=== PATIENT | male | born 1990 | race African-American/Black ===

== ENCOUNTER 2017-06-27 21:12 | Emergency (ER) | payer OTHER ==
[2017-06-27] MEDS ORDERED: Ibuprofen TAB* 600 MG PO ONE ×2 (21:32→22:33)
--- NOTE | 2017-06-27 22:20 | ED ---
HPI Febrile Illness - HPI Summary HPI Summary: 27M presents with fever for a day. He admits to fatigue, muscle aches, headache , sinus congestion and sore throat. He denies any neck stiffness. He has not taken anything for it. He denies any SOB or chest pain. He admits to slight cough. He denies any abdominal pain, n/v/d. He denies any history of strept. headache is located in temporal region. He denies any sinus tenderness. - History of Current Complaint Chief Complaint: EDFluSymptoms Time Seen by Provider: 06/27/17 21:22 Timing: Lasting Hours Pain Intensity: 8 - Allergy/Home Medications Allergies/Adverse Reactions: Allergies Allergy/AdvReac Type Severity Reaction Status Date / Time No Known Allergies Allergy Verified 06/27/17 21:22 PMH/Surg Hx/FS Hx/Imm Hx Endocrine/Hematology History: Denies: Hx Anticoagulant Therapy Cardiovascular History: Denies: Hx Cardiac Arrest Infectious Disease History: No Infectious Disease History: Denies: Traveled Outside the [place] in Last 30 Days - Family History Known Family History: Negative: Diabetes - Social History Alcohol Use: None Substance Use Type: Reports: None Smoking Status (MU): Light Every Day Tobacco Smoker Review of Systems Positive: Fever Positive: Sore Throat, Nasal Discharge Negative: Chest Pain Positive: Cough. Negative: Shortness Of Breath Positive: Headache All Other Systems Reviewed And Are Negative: Yes Physical Exam Triage Information Reviewed: Yes Vital Signs On Initial Exam: Initial Vitals Temp Pulse Resp BP Pulse Ox 100 F 96 22 145/84 97 06/27/17 21:18 06/27/17 21:18 06/27/17 21:18 06/27/17 21:18 06/27/17 21:18 Vital Signs Reviewed: Yes Appearance: Positive: Ill-Appearing Skin: Positive: Warm, Dry Head/Face: Positive: Normal Head/Face Inspection Eyes: Positive: Normal, EOMI, ROMEL, Conjunctiva Clear ENT: Positive: Pharynx normal, Nasal congestion, TMs normal Neck: Positive: Supple, Nontender, No Lymphadenopathy. Negative: Nuchal Rigidity Respiratory/Lung Sounds: Positive: Clear to Auscultation, Breath Sounds Present Cardiovascular: Positive: Normal, RRR Abdomen Description: Positive: Nontender, Soft Bowel Sounds: Positive: Present Neurological: Positive: Normal - Stout Coma Scale Coma Scale Total: 15 Diagnostics - Vital Signs Vital Signs Temp Pulse Resp BP Pulse Ox 06/27/17 21:27 92 98 06/27/17 21:18 100 F 96 22 145/84 97 - Laboratory Lab Results: Lab Results 06/27/17 06/27/17 Range/Units 21:49 21:51 Influenza A (Rapid) Negative (Negative) Influenza B (Rapid) Negative (Negative) Group A Strep Rapid Negative (Negative) Lab Statement: Any lab studies that have been ordered have been reviewed, and results considered in the medical decision making process. Course/Dx - Course Course Of Treatment: 27M presents with fever for a day. He admits to fatigue, muscle aches, headache, sinus congestion and sore throat. He denies any neck stiffness. He has not taken anything for it. He denies any SOB or chest pain. He admits to slight cough. He denies any abdominal pain, n/v/d. He denies any history of strept. lungs CTA. throat normal. strept and flu neg. gave dose of ibuprofen and pt feels better. will d/c with ibuprofen patient understands and agrees with plan. - Febrile Illness Differential Diagnoses: Viremia, Other: - influenza, strept - Diagnoses Provider Diagnoses: Febrile illness Discharge - Discharge Plan Condition: Good Disposition: HOME Prescriptions: Ibuprofen TAB* [Motrin TAB* 600 MG] 600 mg PO Q6H PRN #20 tab PRN Reason: Fever Patient Education Materials: Fever in Adults (ED) Referrals: [facility] [place] [facility]ERR[facility] [Outside] Additional Instructions: Take ibuprofen or tyenlol every 6 hours Drink fluids, rest Establish care with primary care physician to follow up with Return to ED if develop any new or worsening symptoms
[2017-06-27 22:54] VITALS: BP 128/74
== END 2017-06-27 22:53 | disposition home or self-care (01) ==
LOC: ED 21:12
DX: R50.9 Fever, unspecified (principal); R05 Cough; J02.9 Acute pharyngitis, unspecified; R07.9 Chest pain, unspecified
CPT/HCPCS: 87502; 87651; 99282; A9270-GY

== ENCOUNTER 2017-12-01 22:16 | Emergency (ER) | payer OTHER ==
[2017-12-01 22:28] VITALS: BP 131/85
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
== END 2017-12-01 23:04 | disposition home or self-care (01) ==
LOC: ED 22:16
DX: S09.90XA Unspecified injury of head, initial encounter (principal); M25.562 Pain in left knee; W22.01XA Walked into wall, initial encounter; Y92.9 Unspecified place or not applicable; F17.210 Nicotine dependence, cigarettes, uncomplicated
CPT/HCPCS: 99281

== ENCOUNTER 2017-12-02 19:13 | Emergency (ER) | payer OTHER ==
[2017-12-02] MEDS ORDERED: Acetaminophen TAB* 325 MG PO ONE (19:58)
[2017-12-02] MEDS ORDERED: Ibuprofen TAB* 800 MG PO ONE (20:15)
--- NOTE | 2017-12-02 20:39 | ED ---
Influenza-Like Illness - HPI Summary HPI Summary: 27-year-old male presents with fever today. He admits to generalized body aches. He did have a head injury yesterday. He states his headache is better today. He denies any nausea vomiting. Denies any belly pain. He denies any diarrhea. Denies any cough. Denies any sore throat or sinus congestion. He hasn't taken anything for symptoms. No one else is sick. He has no medical conditions. He denies any chest pain or shortness of breath. He denies any neck stiffness. - History of Current Complaint Chief Complaint: EDFever Time Seen by Provider: 12/02/17 19:58 - Allergy/Home Medications Allergies/Adverse Reactions: Allergies Allergy/AdvReac Type Severity Reaction Status Date / Time No Known Allergies Allergy Verified 06/27/17 21:22 PMH/Surg Hx/FS Hx/Imm Hx Endocrine/Hematology History: Denies: Hx Anticoagulant Therapy Cardiovascular History: Denies: Hx Cardiac Arrest Infectious Disease History: No Infectious Disease History: Denies: Traveled Outside the [place] in Last 30 Days - Family History Known Family History: Negative: Diabetes - Social History Alcohol Use: None Substance Use Type: Reports: None Smoking Status (MU): Light Every Day Tobacco Smoker Review of Systems Positive: Fever, Fatigue Negative: Chest Pain Negative: Shortness Of Breath Negative: Abdominal Pain All Other Systems Reviewed And Are Negative: Yes Physical Exam Triage Information Reviewed: Yes Vital Signs On Initial Exam: Initial Vitals Temp Pulse Resp BP Pulse Ox 99.9 F 112 20 143/88 97 12/02/17 19:17 12/02/17 19:17 12/02/17 19:17 12/02/17 19:17 12/02/17 19:17 Vital Signs Reviewed: Yes Appearance: Positive: Well-Appearing Skin: Positive: Warm, Dry Head/Face: Positive: Normal Head/Face Inspection Eyes: Positive: Normal, EOMI, ROMEL, Conjunctiva Clear ENT: Positive: Normal ENT inspection, Pharynx normal, TMs normal Neck: Positive: Supple, Nontender, No Lymphadenopathy. Negative: Nuchal Rigidity Respiratory/Lung Sounds: Positive: Clear to Auscultation, Breath Sounds Present Cardiovascular: Positive: Normal, RRR Abdomen Description: Positive: Nontender, Soft Bowel Sounds: Positive: Present Musculoskeletal: Positive: Normal Neurological: Positive: Normal Psychiatric: Positive: Normal Diagnostics - Vital Signs Vital Signs Temp Pulse Resp BP Pulse Ox 12/02/17 19:17 99.9 F 112 20 143/88 97 - Laboratory Lab Statement: Any lab studies that have been ordered have been reviewed, and results considered in the medical decision making process. Flu Symptom Course/Dx - Course Course Of Treatment: 27-year-old male presents with fever today. He admits to generalized body aches. He did have a head injury yesterday. He states his headache is better today. He denies any nausea vomiting. Denies any belly pain. He denies any diarrhea. Denies any cough. Denies any sore throat or sinus congestion. He hasn't taken anything for symptoms. No one else is sick. He has no medical conditions. He denies any chest pain or shortness of breath. He denies any neck stiffness. On exam lungs clear to auscultation. Pharynx normal. Abdomen soft nontender. flu neg. likely viral syndrome. will have continue tyenlol and ibuprofen. patient understand and agrees with plan. - Diagnoses Differential Diagnosis/HQI/PQRI: Positive: Influenza, Pneumonia, Upper Respiratory Infection Provider Diagnoses: Fever Discharge - Sign-Out/Discharge Documenting (check all that apply): Discharge - Discharge Plan Condition: Good Disposition: AGAINST MEDICAL ADVICE Patient Education Materials: Viral Syndrome (ED) Referrals: [facility] – [place] [facility] REFERRAL [Outside] Additional Instructions: Continue Tylenol or ibuprofen every 6 hours Drink plenty fluids Establish care with primary Return to ED if develop any new or worsening symptoms - Billing Disposition and Condition Condition: GOOD Disposition: LEE
[2017-12-02 21:43] VITALS: BP 120/90
== END 2017-12-02 21:42 | disposition left against medical advice (07) ==
LOC: ED 19:13
DX: R50.9 Fever, unspecified (principal); F17.210 Nicotine dependence, cigarettes, uncomplicated
CPT/HCPCS: 87502; 99282; A9270-GY

== ENCOUNTER 2018-10-19 02:01 | Emergency (ER) | payer MEDICARE, MEDICAID ==
[2018-10-19] MEDS ORDERED: Ibuprofen TAB* 800 MG PO ONE (02:26)
--- NOTE | 2018-10-19 02:35 | ED ---
HPI Febrile Illness - HPI Summary HPI Summary: This patient is a 28 year old male brought in by ambulance to [facility] with a chief complaint of febrile illness since yesterday. Patient states that he has coughs and congestion, followed by chest pain. The pain is rated 5/10 in severity. Symptoms aggravated by nothing. Symptoms alleviated by nothing. Patient additionally reports body aches, chills, fever, cough, sore throat. - History of Current Complaint Chief Complaint: EDFluSymptoms Time Seen by Provider: 10/19/18 02:19 Hx Obtained From: Patient Onset/Duration: Still Present Timing: Constant Temperature: 100 F Current Severity: Moderate Pain Intensity: 5 Pain Scale Used: 0-10 Numeric Aggravating Factors: Nothing Alleviating Factors: Nothing Associated Signs and Symptoms: Other: - body aches, chills, fever, cough, sore throat, chest pain - Allergy/Home Medications Allergies/Adverse Reactions: Allergies Allergy/AdvReac Type Severity Reaction Status Date / Time No Known Allergies Allergy Verified 06/27/17 21:22 PMH/Surg Hx/FS Hx/Imm Hx Previously Healthy: Yes Endocrine/Hematology History: Denies: Hx Anticoagulant Therapy Cardiovascular History: Denies: Hx Cardiac Arrest Opthamlomology History: Denies: Hx Legally Blind EENT History: Denies: Hx Deafness Infectious Disease History: No Infectious Disease History: Denies: Traveled Outside the [place] in Last 30 Days - Family History Known Family History: Negative: Diabetes - Social History Alcohol Use: None Hx Substance Use: No Substance Use Type: Reports: None Hx Tobacco Use: Yes Smoking Status (MU): Light Every Day Tobacco Smoker Review of Systems Positive: Fever, Chills Positive: Sore Throat Positive: Chest Pain Positive: Cough Positive: Myalgia All Other Systems Reviewed And Are Negative: Yes Physical Exam - Summary Physical Exam Summary: VITAL SIGNS: Reviewed. GENERAL: Patient is a well-developed and nourished (MALE OR FEMALE) who is lying comfortable in the stretcher. Patient is not in any acute respiratory distress. HEAD AND FACE: No signs of trauma. No ecchymosis, hematomas or skull depressions. No sinus tenderness. EYES: PERRLA, EOMI x 2, No injected conjunctiva, no nystagmus. EARS: Hearing grossly intact. Ear canals and tympanic membranes are within normal limits. MOUTH: Oropharynx within normal limits. NECK: Supple, trachea is midline, no adenopathy, no JVD, no carotid bruit, no c- spine tenderness, neck with full ROM. CHEST: Symmetric, no tenderness at palpation LUNGS: Clear to auscultation bilaterally. No wheezing or crackles. CVS: Regular rate and rhythm, S1 and S2 present, no murmurs or gallops appreciated. ABDOMEN: Soft, non-tender. No signs of distention. No rebound no guarding, and no masses palpated. Bowel sounds are normal. EXTREMITIES: FROM in all major joints, no edema, no cyanosis or clubbing. NEURO: Alert and oriented x 3. No acute neurological deficits. Speech is normal and follows commands. SKIN: Dry and warm Triage Information Reviewed: Yes Vital Signs On Initial Exam: Initial Vitals Temp Pulse Resp BP Pulse Ox 100.0 F 101 18 150/91 98 10/19/18 02:05 10/19/18 02:05 10/19/18 02:05 10/19/18 02:05 10/19/18 02:05 Vital Signs Reviewed: Yes Diagnostics - Vital Signs Vital Signs Temp Pulse Resp BP Pulse Ox 10/19/18 02:10 99 99 10/19/18 02:05 100.0 F 96 18 150/91 99 - Laboratory Lab Statement: Any lab studies that have been ordered have been reviewed, and results considered in the medical decision making process. Course/Dx - Course Course Of Treatment: This patient is a 28 year old male brought in by ambulance to [facility] with a chief complaint of febrile illness since yesterday. Patient states that he has coughs and congestion, followed by chest pain. In the ED course the patient was given ibuprofen, Tamiflu. The pt is hemodynamically stable, alert and oriented x3. Patients flu swab is positive. Patient will be discharged with a dx of flu. Patient is advised to follow up with PCP in 3 days. The patient is agreeable with this plan. - Diagnoses Provider Diagnoses: Flu Discharge - Sign-Out/Discharge Documenting (check all that apply): Patient Departure Patient Received Moderate/Deep Sedation with Procedure: No - Discharge Plan Condition: Stable Disposition: HOME Prescriptions: Ibuprofen TAB* [Motrin TAB* 800 MG] 800 mg PO Q6H PRN #30 tab PRN Reason: Fever/Pain Oseltamivir CAP* [Tamiflu CAP*] 75 mg PO BID #10 cap Patient Education Materials: Influenza (ED) Forms: *Work Release Referrals: No Primary Care Phys,NOPCP [Primary Care Provider] - 2 Days Additional Instructions: Return to the ED for any new or worsening symptoms. - Attestation Statements Document Initiated by Scribe: Yes Documenting Scribe: Beatris Qiu Provider For Whom Scribe is Documenting (Include Credential): Britt Conrad MD Scribe Attestation: IBeatris, scribed for Britt Conrad MD on 10/19/18 at 0250. Status of Scribe Document: Ready
[2018-10-19 02:47] LABS: Influenza A Molecular POSITIVE (Negative)
[2018-10-19] MEDS ORDERED: Oseltamivir CAP* 75 MG CAP PO ONE (02:48)
[2018-10-19 03:06] VITALS: BP 110/74
== END 2018-10-19 03:05 | disposition home or self-care (01) ==
LOC: ED 02:01
DX: J10.1 Influenza due to other identified influenza virus with other respiratory manifestations (principal); F17.200 Nicotine dependence, unspecified, uncomplicated
CPT/HCPCS: 87651; 99283; A9270-GY

== ENCOUNTER 2018-10-19 13:58 | Emergency (ER) | payer MEDICARE, MEDICAID ==
--- NOTE | 2018-10-19 14:17 | ED ---
Influenza-Like Illness - HPI Summary HPI Summary: This patient is a 28 year old M brought in by ambulance to [facility] with a chief complaint of cough since 3 days ago. The patient was seen at [facility] 1 day ago and tested positive for flu A. The patient rates the pain 6/10 in severity. Symptoms aggravated by nothing. Symptoms alleviated by nothing. Patient reports sore throat, NICOLAS, nasal congestion, and myalgias. Patient denies taking any OTC medications. The patient reports that none of his symptoms have changed since 1 day ago. - History of Current Complaint Time Seen by Provider: 10/19/18 14:01 Hx Obtained From: Patient Onset/Duration: Gradual Onset, Lasting Days - 3 days, Still Present Severity: Mild Associated Signs & Symptoms: Myalgia, Cough, Sore Throat, Nasal Congestion, Headache - Allergy/Home Medications Allergies/Adverse Reactions: Allergies Allergy/AdvReac Type Severity Reaction Status Date / Time No Known Allergies Allergy Verified 06/27/17 21:22 PMH/Surg Hx/FS Hx/Imm Hx Endocrine/Hematology History: Denies: Hx Anticoagulant Therapy Cardiovascular History: Denies: Hx Cardiac Arrest Sensory History: Denies: Hx Legally Blind, Hx Deafness Opthamlomology History: Denies: Hx Legally Blind - Surgical History Surgery Procedure, Year, and Place: none Infectious Disease History: No Infectious Disease History: Denies: Traveled Outside the [place] in Last 30 Days - Family History Known Family History: Negative: Diabetes - Social History Alcohol Use: None Hx Substance Use: No Substance Use Type: Reports: None Hx Tobacco Use: Yes Smoking Status (MU): Light Every Day Tobacco Smoker Review of Systems Positive: Sore Throat, Other - nasal congestion Positive: Cough Positive: Myalgia Positive: Headache All Other Systems Reviewed And Are Negative: Yes Physical Exam - Summary Physical Exam Summary: Appearance: The patient is well-nourished in no acute distress and in no acute pain. Skin: The skin is warm and dry and skin color reflects adequate perfusion. HEENT: The head is normocephalic and atraumatic. The pupils are equal and reactive. The conjunctivae are clear and without drainage. Nares are patent and without drainage. Mouth reveals moist mucous membranes and the throat is without erythema and exudate. The external ears are intact. The ear canals are patent and without drainage. The tympanic membranes are intact. Nasal congestion. Neck: The neck is supple with full range of motion and non-tender. There are no carotid bruits. There is no neck vein distension. Respiratory: Chest is non-tender. Lungs are clear to auscultation and breath sounds are symmetrical and equal. Cardiovascular: Heart is regular rate and rhythm. There is no murmur or rub auscultated. There is no peripheral edema and pulses are symmetrical and equal. Wet cough. Abdomen: The abdomen is soft and non-tender. There are normal bowel sounds heard in all four quadrants and there is no organomegaly palpated. Musculoskeletal: There is no back tenderness noted. Extremities are non-tender with full range of motion. There is good capillary refill. There is no peripheral edema or calf tenderness elicited. Neurological: Patient is alert and oriented to person, place and time. The patient has symmetrical motor strength in all four extremities. Cranial nerves are grossly intact. Deep tendon reflexes are symmetrical and equal in all four extremities. Psychiatric: The patient has an appropriate affect and does not exhibit any anxiety or depression. Triage Information Reviewed: Yes Vital Signs On Initial Exam: Initial Vitals Temp Pulse Resp BP Pulse Ox 100.4 F 100 19 130/96 95 10/19/18 14:06 10/19/18 14:06 10/19/18 14:06 10/19/18 14:06 10/19/18 14:06 Vital Signs Reviewed: Yes Diagnostics - Vital Signs Vital Signs Temp Pulse Resp BP Pulse Ox 10/19/18 14:06 100.4 F 100 19 130/96 95 - Laboratory Lab Statement: Any lab studies that have been ordered have been reviewed, and results considered in the medical decision making process. Flu Symptom Course/Dx - Course Course Of Treatment: Mr. Sung was seen in the emergency department during the night and diagnosed with influenza. He was given prescriptions for Tamiflu and recommendations for ibuprofen and acetaminophen. He did not obtain any of the medications and returned complaining that he was still feeling poorly. He was nontoxic in appearance his vitals are stable. He was given some education about medications and influenza. He was given medications here in the emergency department and discharged with encouragement to fill his prescription and obtained Tylenol and ibuprofen. - Diagnoses Provider Diagnoses: Influenza Discharge - Sign-Out/Discharge Documenting (check all that apply): Patient Departure - discharge home Patient Received Moderate/Deep Sedation with Procedure: No - Discharge Plan Condition: Stable Disposition: HOME Patient Education Materials: Influenza (ED) Referrals: [facility] [Outside] Additional Instructions: Follow up with primary care physician in 2-3 days. Return to the emergency department with any new or worsening symptoms. - Billing Disposition and Condition Condition: STABLE Disposition: Home - Attestation Statements Document Initiated by Scribe: Yes Documenting Scribe: Joleen Bailey Provider For Whom Scribe is Documenting (Include Credential): Chino Sanz MD Scribe Attestation: Joleen Deluna scribed for Chino Sanz MD on 10/19/18 at 1829. Scribe Documentation Reviewed: Yes Provider Attestation: The documentation as recorded by the Joleen madera accurately reflects the service I personally performed and the decisions made by Chino tamayo MD Status of Scribe Document: Viewed
[2018-10-19] MEDS ORDERED: Acetaminophen TAB* 325 MG PO ONE (14:20)
[2018-10-19] MEDS ORDERED: Ibuprofen TAB* 600 MG PO ONE (14:20)
[2018-10-19] MEDS ORDERED: Oseltamivir CAP* 75 MG CAP PO ONE (14:21)
[2018-10-19 15:27] VITALS: BP 141/83
== END 2018-10-19 15:26 | disposition home or self-care (01) ==
LOC: ED 13:58
DX: J10.1 Influenza due to other identified influenza virus with other respiratory manifestations (principal); F17.200 Nicotine dependence, unspecified, uncomplicated
CPT/HCPCS: 99283; A9270-GY

== ENCOUNTER 2018-12-11 12:45 | Emergency (ER) | payer MEDICAID, MEDICARE, OTHER ==
[2018-12-11 13:13] VITALS: BP 140/83
--- NOTE | 2018-12-11 14:37 | CONSULT ---
Consult Consult: Patient was not seen by ER physician or ER provider as he left without being seen from the waiting room.
== END 2018-12-11 14:30 | disposition left against medical advice (07) ==
LOC: ED 12:45
DX: M79.604 Pain in right leg (principal); M79.631 Pain in right forearm; Z53.21 Procedure and treatment not carried out due to patient leaving prior to being seen by health care provider

== ENCOUNTER 2018-12-23 13:03 | Emergency (ER) | payer OTHER ==
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
[2018-12-23 16:00] VITALS: BP 142/77
== END 2018-12-23 15:59 | disposition home or self-care (01) ==
LOC: ED 13:03
DX: S80.811A Abrasion, right lower leg, initial encounter (principal); S50.312A Abrasion of left elbow, initial encounter; V09.9XXA Pedestrian injured in unspecified transport accident, initial encounter; F17.210 Nicotine dependence, cigarettes, uncomplicated
CPT/HCPCS: 99282

== ENCOUNTER 2019-06-08 10:45 | Emergency (ER) | payer MEDICARE, OTHER, MEDICAID ==
[2019-06-08 11:41] LABS: Rapid Strep Molecular Negative (Negative)
[2019-06-08 11:50] LABS: Influenza A Molecular NEGATIVE (Negative); Influenza B Molecular NEGATIVE (Negative)
--- NOTE | 2019-06-08 12:19 | ED ---
Influenza-Like Illness - HPI Summary HPI Summary: The pt is a 29 yr old male presenting [facility] c/o cough with production and sore throat beginning 05/25/2019. He notes that the symptoms had been going on for too long, which is why he decided to visit the ED. He took the bus to [facility] 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 He mentions that his sore throat and cough with yellow sputum production are continuing to get worse and rates his pain severity due to these symptoms a 10/20. He is starting a job at [employer] on 06/11/19, and would like to be well enough to work. Regarding family hx:He notes that both his mother and father are alive and well and he cannot think of any diseases that are in his family. No alleviating or aggravating factors noted. He also denies any fever, rhinorrhea, calf pain, N/V/D, chills, body aches, SOB, abd pain, or ear pain. He smokes 5 cigarettes a day for 8 years but denies any other medical or surgical history except for wisdom teeth removal. - History of Current Complaint Chief Complaint: EDFluSymptoms Time Seen by Provider: 06/08/19 11:19 Hx Obtained From: Patient Onset/Duration: Sudden Onset, Lasting Weeks, Still Present Severity: Moderate Associated Signs & Symptoms: Negative - fever, rhinorrhea, calf pain, N/V/D, abd pain, chills, body aches, SOB, or ear pain, Cough, Sore Throat Related Hx: Smoking - Allergy/Home Medications Allergies/Adverse Reactions: Allergies Allergy/AdvReac Type Severity Reaction Status Date / Time No Known Allergies Allergy Verified 06/08/19 10:55 Home Medications: Home Medications Aripiprazole Maintena (NF) [Abilify Maintena (NF)] 400 mg IM Q28D 06/08/19 [ History Confirmed 06/08/19] PMH/Surg Hx/FS Hx/Imm Hx Previously Healthy: Yes Endocrine/Hematology History: Denies: Hx Anticoagulant Therapy Cardiovascular History: Denies: Hx Cardiac Arrest Sensory History: Denies: Hx Legally Blind, Hx Deafness Opthamlomology History: Denies: Hx Legally Blind - Surgical History Surgery Procedure, Year, and Place: wisdom teeth removal Infectious Disease History: No Infectious Disease History: Denies: Traveled Outside the [place] in Last 30 Days - Family History Known Family History: Negative: Diabetes - Social History Alcohol Use: None Hx Substance Use: No Substance Use Type: Reports: None Hx Tobacco Use: Yes Smoking Status (MU): Light Every Day Tobacco Smoker Review of Systems Negative: Fever, Chills Positive: Sore Throat. Negative: Ear Ache, Nasal Discharge Cardiovascular: Negative Positive: Cough. Negative: Shortness Of Breath Negative: Abdominal Pain, Vomiting, Diarrhea, Nausea Positive: no symptoms reported Musculoskeletal: Other - neg - body aches, calf pain Skin: Negative Neurological: Negative Psychological: Normal All Other Systems Reviewed And Are Negative: Yes Physical Exam - Summary Physical Exam Summary: Appearance: Ill-appearing, minimal pain distress due to sore throat, well- nourished Skin: Warm, color reflects adequate perfusion, dry Head: Normal Head/Face inspection, atraumatic Eyes: Conjunctiva clear ENT: Normal inspection, TM's clear, Pharynx clear, no tonsillar enlargement or exudate Neck: Supple, no nodes, no JVD Respiratory: Diminished breath sounds throughout, no respiratory distress, frequent non-productive cough throughout exam Cardio: RRR, No murmur, pulses normal, brisk capillary refill Abdomen: Soft, nontender Bowel sounds: Present Musculoskeletal: Strength Intact/ROM intact, no calf tenderness, no edema. Psychological: Normal Neuro: Alert, muscle tone normal, no focal deficit Triage Information Reviewed: Yes Vital Signs On Initial Exam: Initial Vitals Temp Pulse Resp BP Pulse Ox 98.6 F 59 16 144/88 100 06/08/19 10:53 06/08/19 10:53 06/08/19 10:53 06/08/19 10:53 06/08/19 10:53 Vital Signs Reviewed: Yes Procedures - Sedation Patient Received Moderate/Deep Sedation with Procedure: No Diagnostics - Vital Signs Vital Signs Temp Pulse Resp BP Pulse Ox 06/08/19 10:53 98.6 F 59 16 144/88 100 - Laboratory Lab Results: Lab Results 06/08/19 06/08/19 Range/Units 11:24 11:24 Influenza A (Rapid) Negative (Negative) Influenza B (Rapid) Negative (Negative) Group A Strep Rapid Negative (Negative) Diagnostic Studies Comment: rapid influenza A and B, and rapid strep tests are all negative Lab Statement: Any lab studies that have been ordered have been reviewed, and results considered in the medical decision making process. Re-Evaluation - Re-Evaluation First Eval Re-Evaluation Time: 12:20 Change: Unchanged Comment: Discharge plans discussed with pt. First dose of antibiotic given to pt as he will not have access to pharmacy in time to take his first dose of medication today. Flu Symptom Course/Dx - Course Course Of Treatment: The pt is a 29 yr old male presenting to [facility] c/o cough with production and sore throat beginning 05/25/2019. Test results were negative for influenza and strep throat. In the ED course pt was given 500 mg Zithromax Px 1 because pt cannot get to a pharmacy that is open at the time he can get there by bus. Final Dx are URI and Bronchitis. Will give the pt Azithromycin RXwith [facility] follow-up. The pt will be discharged home and is agreeable with this plan. - Diagnoses Differential Diagnosis/HQI/PQRI: Positive: Bronchitis, Influenza, Pneumonia, Upper Respiratory Infection Provider Diagnoses: URI (upper respiratory infection), Bronchitis, Tobacco abuse disorder, Elevated BP without diagnosis of hypertension Discharge ED - Sign-Out/Discharge Documenting (check all that apply): Patient Departure - discharge Patient Received Moderate/Deep Sedation with Procedure: No - Discharge Plan Condition: Stable Disposition: HOME Prescriptions: Azithromycin TAB* [Zithromax TAB (Z-SILVIA) 250 mg #6 tabs] 250 mg PO DAILY #4 tab Referrals: [facility] [Outside] - 2 Days Additional Instructions: Your flu swab and strep swab are both negative. We gave your first dose of the "Z-silvia" to treat bronchitis in the ER. You should bead picker the medication tomorrow and continue it once a day until it is gone (5 days total, counting today). You may take an over the counter medication such as Mucinex (or generic Mucinex ) or Robitussin (or generic) for your cough. Return to the ER if you have any new or worsening symptoms. - Billing Disposition and Condition Condition: STABLE Disposition: Home - Attestation Statements Document Initiated by Scribe: Yes Documenting Scribe: Sal Rose Provider For Whom Scribe is Documenting (Include Credential): Amina Carrillo MD Scribe Attestation: I, Sal Rose, scribed for Amina Carrillo MD on 07/01/19 at 2358. Scribe Documentation Reviewed: Yes Provider Attestation: The documentation as recorded by the scribe, Sal Rose accurately reflects the service I personally performed and the decisions made by me, Amina Carrillo MD Status of Scribe Document: Viewed
[2019-06-08] MEDS ORDERED: Azithromycin TAB* 250 MG PO ONE (12:22)
[2019-06-08 12:57] VITALS: BP 135/82
== END 2019-06-08 12:30 | disposition home or self-care (01) ==
LOC: ED 10:45
DX: J06.9 Acute upper respiratory infection, unspecified (principal); J40 Bronchitis, not specified as acute or chronic; F17.200 Nicotine dependence, unspecified, uncomplicated
CPT/HCPCS: 87651; 99282; A9270-GY

== ENCOUNTER 2019-11-16 12:37 | Emergency (ER) | payer MEDICARE, OTHER, MEDICAID ==
--- OUTSIDE RECORDS SUMMARY | 2019-11-16 13:02 | XMS REPORT ---
:1990 Author Organization [facility] Care Team Providers Name Role Phone TIFFANI SKELTON Primary Care Physician Unavailable Allergies, Adverse Reactions, Alerts Allergy Code CodeSystem Reaction Severity Criticality Status Start Substance Date Moderate Medications Medication Medication Medication Start Stop Route Dose Status Fill Code CodeSystem Date Date Instructions RxNorm Relevant diagnostic tests/laboratory data Narrative No Information Procedures Procedure Code CodeSystem Target Date of Status Service Device Device Device Name Site Procedure Delivery Code Name UID Location Comprehensiv 130007 SNOMED-CT () 2019-01-06 complete Mental e medication 0 d Health- services, [place] [address] [place], [place], [id number] Comprehensiv 490193 SNOMED-CT () 2019-02-06 complete Mental e medication 0 d Health- services, [place] per [address] [place] [address] [place], [place], [id number] Comprehensiv 574192 SNOMED-CT () 2019-03-14 complete Mental e medication 0 d Health- services, [place] [address] [place], [place], [id number] Comprehensiv 080978 SNOMED-CT () 2019-04-11 complete Mental e medication 0 d Health- services, [place] [address] [place], [place], [id number] Comprehensiv 140095 SNOMED-CT () 2019-05-09 complete Mental e medication 0 d Health- services, [place] [address] [place], [place], [id number] Comprehensiv 258628 SNOMED-CT () 2019-06-10 complete Mental e medication 0 d Health- services, [place] [address] [place], [place], [id number] Comprehensiv 188239 SNOMED-CT () 2019-07-08 complete Mental e medication 0 d Health- services, [place] [address] [place] [address], [id number] Comprehensiv 012536 SNOMED-CT () 2019-08-05 complete Mental e medication 0 d Health- services, [place] [address] [place] [address], [id number] Comprehensiv 651477 SNOMED-CT () 2019-09-04 complete Mental e medication 0 d Health- services, [place] per [address] [place] [address], [id number] Office or 618708 SNOMED-CT () 2019-09-25 complete Mental other 6 d Health- outpatient [place] visit for [address], [facility], established [id number] patient, [id number] which requires at least 2 of these 3 hanna components: A problem focused history; A problem focused examination; Straightforw kristen medical decision making. Counselin Office or 355512 SNOMED-CT () 2019-05-20 complete Mental other 6 d Health- outpatient [place] visit for [address], [facility], established [id number] patient, [id number] which requires at least 2 of these 3 hanna components: A problem focused history; A problem focused examination; Straightforw kristen medical decision making. Counselin Encounters/Encounter Diagnoses Encounter Name Encounter Diagnosis Diagnosis Diagnosis Date of Service Code Code Name CodeSystem Diagnosis Delivery Location Injectable H2010 SNOMED-CT 2019-10-02 [facility] , , with Monitoring & , Education Vital Signs No Information Social History Element Description Description Start End Code CodeSystem AdditionalInfo Date Date SexAssignedAtBirth Male 1990-0 M AdministrativeGender 5-20 Hospital Discharge Instructions Reason For Referral Medical Equipment FDA Assessments
[2019-11-16 14:37] VITALS: BP 135/74
--- NOTE | 2019-11-17 05:50 | ED ---
Throat Pain/Nasal Congestion - HPI Summary HPI Summary: Pt is a 29yo with CC of stuffy nose and cough x 2-3 days. Patient denies any fevers, sweats or chills. Denies cough without production. Denies any body aches or recent sick contacts. Denies any other recent illness. No ear pain, eye pain, throat pain, difficulty swallowing. No chest pain or shortness of breath. Patient is a 1 [employer] smoker. No other past medical history. No history of CAD. Family history unknown. - History of Current Complaint Chief Complaint: EDFluSymptoms Time Seen by Provider: 11/16/19 13:28 Hx Obtained From: Patient Onset/Duration: Gradual Onset Severity: Mild Associated Signs And Symptoms: Negative: Dysphagia, FB Sensation, Drooling, Wheezing, Hoarseness - Epiglottits Risk Factors Epiglottis Risk Factors: Negative - Allergies/Home Medications Allergies/Adverse Reactions: Allergies Allergy/AdvReac Type Severity Reaction Status Date / Time No Known Allergies Allergy Verified 11/16/19 12:50 Home Medications: Home Medications Aripiprazole Maintena (NF) [Abilify Maintena (NF)] 400 mg IM Q28D 06/08/19 [ History Confirmed 06/08/19] Azithromycin TAB* [Zithromax TAB (Z-SILVIA) 250 mg #6 tabs] 250 mg PO DAILY #4 tab 06/08/19 [Rx] GuaiFENesin DM 100 mg/10 mg [Robitussin DM 100 mg/10 mg in 5 ml] 10 ml PO Q4H PRN #180 ml MDD 60 11/16/19 [Rx] Saline NASAL DROPS 0.65%* [Sodium Chloride 0.65% Nasal DROPS*] 1 drop BOTH NARES ED ONCE #1 btl 11/16/19 [Rx] PMH/Surg Hx/FS Hx/Imm Hx Previously Healthy: Yes Endocrine/Hematology History: Denies: Hx Anticoagulant Therapy Cardiovascular History: Denies: Hx Cardiac Arrest Sensory History: Denies: Hx Legally Blind, Hx Deafness Opthamlomology History: Denies: Hx Legally Blind - Surgical History Surgery Procedure, Year, and Place: wisdom teeth removal - Immunization History Hx Pertussis Vaccination: No Immunizations Up to Date: Yes Infectious Disease History: No Infectious Disease History: Denies: Traveled Outside the [place] in Last 30 Days - Family History Known Family History: Negative: Diabetes - Social History Occupation: Unemployed Lives: With Family Alcohol Use: None Hx Substance Use: No Substance Use Type: Reports: None Hx Tobacco Use: Yes Smoking Status (MU): Light Every Day Tobacco Smoker Review of Systems Negative: Fever, Chills, Fatigue, Skin Diaphoresis Positive: Other - nasal congestion. Negative: Sore Throat, Ear Ache, Nasal Discharge Negative: Chest Pain Positive: Cough. Negative: Shortness Of Breath Negative: Rash, Bruising Negative: Headache, Weakness Psychological: Normal All Other Systems Reviewed And Are Negative: Yes Physical Exam Triage Information Reviewed: Yes Vital Signs On Initial Exam: Initial Vitals Temp Pulse Resp BP Pulse Ox 99.6 F 76 16 145/86 97 11/16/19 12:46 11/16/19 12:46 11/16/19 12:46 11/16/19 12:46 11/16/19 12:46 Vital Signs Reviewed: Yes Appearance: Positive: Well-Appearing, Well-Nourished Skin: Positive: Skin Color Reflects Adequate Perfusion Head/Face: Positive: Normal Head/Face Inspection Eyes: Positive: EOMI, Conjunctiva Clear ENT: Positive: Hearing grossly normal, Pharynx normal, Nasal congestion, TMs normal, Uvula midline. Negative: Pharyngeal erythema, Nasal drainage, Tonsillar swelling, Tonsillar exudate, Muffled voice, Hoarse voice, Dental tenderness, Sinus tenderness Neck: Positive: Supple, Nontender, No Lymphadenopathy Respiratory/Lung Sounds: Positive: Clear to Auscultation, Breath Sounds Present Cardiovascular: Positive: RRR, Pulses are Symmetrical in both Upper and Lower Extremities Musculoskeletal: Positive: Strength/ROM Intact Neurological: Positive: Speech Normal Psychiatric: Positive: Affect/Mood Appropriate AVPU Assessment: Alert Procedures - Sedation Patient Received Moderate/Deep Sedation with Procedure: No Diagnostics - Vital Signs Vital Signs Temp Pulse Resp BP Pulse Ox 11/16/19 14:36 99.1 F 73 18 135/74 98 11/16/19 12:46 99.6 F 76 16 145/86 97 - Laboratory Lab Statement: Any lab studies that have been ordered have been reviewed, and results considered in the medical decision making process. EENT Course/Dx - Course Course Of Treatment: On physical examination, the patient appears well. No maxillary sinus tenderness. Lungs CTA, RRR. TMs without erythema, positive cone of light. No pharyngeal erythema or bilateral tonsillar exudates. No cervical LAD. Patient appears well. Vital signs are stable. Discussed with the patient if cough continues, he may use an [id number] Robitussin and any nasal saline spray rinses for nasal congestion. He is requesting rx for this. - Diagnoses Provider Diagnoses: Nasal congestion Discharge ED - Sign-Out/Discharge Documenting (check all that apply): Patient Departure - Discharge Plan Condition: Stable Disposition: HOME Prescriptions: GuaiFENesin DM 100 mg/10 mg [Robitussin DM 100 mg/10 mg in 5 ml] 10 ml PO Q4H PRN #180 ml MDD 60 PRN Reason: Cough Saline NASAL DROPS 0.65%* [Sodium Chloride 0.65% Nasal DROPS*] 1 drop BOTH NARES ED ONCE #1 btl Patient Education Materials: Cold Symptoms (ED) Referrals: No Primary Care Phys,NOPCP [Primary Care Provider] - Additional Instructions: Take medications as directed Humidifier in the home Follow up as needed - Billing Disposition and Condition Condition: STABLE Disposition: Home
== END 2019-11-16 14:36 | disposition home or self-care (01) ==
LOC: ED 12:37
DX: R09.81 Nasal congestion (principal); R05 Cough; F17.210 Nicotine dependence, cigarettes, uncomplicated
CPT/HCPCS: 99282

== ENCOUNTER 2019-12-21 16:38 | Emergency (ER) | payer MEDICARE, MEDICAID, OTHER ==
--- NOTE | 2019-12-21 17:21 | ED ---
HPI Febrile Illness - HPI Summary HPI Summary: 29 y/o presenting w fever to 100 last night. Patient concerned because he has at home. No sore throat, cough. Does feel warm, some body aches. No sick contacts. Made apt tomorrow to get tested. No PMHx, PSHx. Fam hx - neg. Social: tobacco use - History of Current Complaint Time Seen by Provider: 12/21/19 17:05 Hx Obtained From: Patient Onset/Duration: Started Hours Ago, Still Present Timing: Lasting Hours Aggravating Factors: Nothing Alleviating Factors: Nothing Associated Signs and Symptoms: Other: - fever - Allergy/Home Medications Allergies/Adverse Reactions: Allergies Allergy/AdvReac Type Severity Reaction Status Date / Time No Known Allergies Allergy Verified 11/16/19 12:50 Home Medications: Home Medications Aripiprazole Maintena (NF) [Abilify Maintena (NF)] 400 mg IM Q28D 06/08/19 [ History Confirmed 06/08/19] Azithromycin TAB* [Zithromax TAB (Z-SILVIA) 250 mg #6 tabs] 250 mg PO DAILY #4 tab 06/08/19 [Rx] GuaiFENesin DM 100 mg/10 mg [Robitussin DM 100 mg/10 mg in 5 ml] 10 ml PO Q4H PRN #180 ml MDD 60 11/16/19 [Rx] Saline NASAL DROPS 0.65%* [Sodium Chloride 0.65% Nasal DROPS*] 1 drop BOTH NARES ED ONCE #1 btl 11/16/19 [Rx] PMH/Surg Hx/FS Hx/Imm Hx Endocrine/Hematology History: Denies: Hx Anticoagulant Therapy Cardiovascular History: Denies: Hx Cardiac Arrest Sensory History: Denies: Hx Legally Blind, Hx Deafness Opthamlomology History: Denies: Hx Legally Blind EENT History: Denies: Hx Deafness - Surgical History Surgery Procedure, Year, and Place: wisdom teeth removal - Family History Known Family History: Negative: Diabetes - Social History Alcohol Use: None Hx Substance Use: No Substance Use Type: Reports: None Hx Tobacco Use: Yes Smoking Status (MU): Light Every Day Tobacco Smoker Review of Systems Positive: Fever Negative: Sore Throat Negative: Cough All Other Systems Reviewed And Are Negative: Yes Physical Exam - Summary Physical Exam Summary: General: Well appearing, no distress Cardiovascular: Skin is well perfused Pulmonary: No respiratory distress, no tachypnea Abdomen: Non-distended Skin: Warm, pink, dry MSK: no edema Psych: Normal affect Neuro: A&Ox3 Triage Information Reviewed: Yes Vital Signs Reviewed: Yes Procedures - Sedation Patient Received Moderate/Deep Sedation with Procedure: No Course/Dx - Course Course Of Treatment: Patient presenting with fever. Requesting COVID test. Patient well appearing, with stable vitals. Patient does not have increased work of breathing, productive cough to suggest pneumonia. No headache, neck pain or nuchal rigidity. Tolerating by mouth. Patient given strict instructions on quarantine, follow-up with department of health, and return precautions. Plan for discharge w symptomatic control and will return for worsening symptoms. - Diagnoses Provider Diagnoses: Fever Discharge ED - Sign-Out/Discharge Documenting (check all that apply): Patient Departure - dc - Discharge Plan Condition: Stable Disposition: HOME Patient Education Materials: COVID-19 (Coronavirus Disease 2019) (ED) Forms: COVID-19 Tested & Isolation Referrals: [facility] [Outside] Additional Instructions: You were seen in the emergency department for coronavirus rule out. Your test is pending. You are in quarantine, this means she should stay in your house. You should wear a mask you're outside of your personal room. We encourage handwashing as well as limited contact with other people including the elderly and the immunocompromised. If any studies were not completed at the time of discharge you will be called with the relevant results. Please follow up with your primary care doctor in next 2-3 days and return to emergency department for trouble breathing, worsening or concerning symptoms. It was a pleasure taking care of you today. - Billing Disposition and Condition Condition: STABLE Disposition: Home - Attestation Statements Document Initiated by Georgiana: Yes Documenting Scribe: Slava Contreras Provider For Whom Georgiana is Documenting (Include Credential): Justo Salazar MD Scribe Attestation: Slava Deluna, scribed for Justo Salazar MD on 12/21/19 at 1756. Scribe Documentation Reviewed: Yes Provider Attestation: The documentation as recorded by the Slava madera accurately reflects the service I personally performed and the decisions made by me, Justo Salazar MD Status of Scribe Document: Viewed
[2019-12-21] MEDS ORDERED: Acetaminophen TAB* 325 MG PO ONE (17:26)
[2019-12-21 17:45] VITALS: BP 144/81
== END 2019-12-21 17:58 | disposition home or self-care (01) ==
LOC: ED 16:38
DX: R50.9 Fever, unspecified (principal); Z79.899 Other long term (current) drug therapy; F17.210 Nicotine dependence, cigarettes, uncomplicated; Z20.828 Contact with and (suspected) exposure to other viral communicable diseases
CPT/HCPCS: 87635; 99282; A9270-GY; G2023